=== PATIENT | male | born 1995 | race American Indian/Alaskan Native ===

== ENCOUNTER 2017-06-11 11:48 | Emergency (ER) | payer SELFPAY ==
[2017-06-11] MEDS ORDERED: TYLENOL ONE (11:57)
[2017-06-11] MEDS: TYLENOL PO ONE (12:01)
[2017-06-11 12:03] VITALS: BP 134/83
[2017-06-11] MEDS: MOTRIN PO ONE (14:52)
[2017-06-11 15:00] LABS: Bilirubin,Urine NEG (Negative); Blood,Urine NEG (Negative); Ketones,Urine NEG (Negative); Leukocyte Esterase,Urine NEG (Negative); Mucus,Urine FEW /HPF; Nitrite,Urine NEG (Negative); Urobilinogen,Urine < 2.0 mg/dL (<2.0)
[2017-06-11 15:10] LABS: Hematocrit 43.1 % (35.5-45.6); Hemoglobin 14.3 gm/dl (11.8-15.2); Mean Corpuscular HGB Conc 33 % (32-34); Mean Corpuscular Hemoglobin 28 pg (28-32); Mean Corpuscular Volume 85 fl (84-94); Platelet Count 171 K/mm3 (140-440); Red Blood Count 5.09 M/mm3 (3.65-5.03); Red Cell Distribution Width 13.5 % (13.2-15.2); White Blood Count 14.8 K/mm3 (4.5-11.0)
--- NOTE | 2017-06-11 15:35 | Emergency Department Report ---
- General Chief Complaint: Upper Respiratory Infection Stated Complaint: FLU LIKE SYMPTOMS,FEVER Time Seen by Provider: 06/11/17 14:31 Source: patient Mode of arrival: Ambulatory Limitations: No Limitations - History of Present Illness Initial Comments: This is a 22-year-old male nontoxic, well nourished in appearance, no acute signs of distress presents to the ED complaining of productive yellow cough, sore throat, rhinorrhea, fever and chills times one week. Patient stated when he has a cough episode he has back pain but denies back pain currently. Patient denies hemoptysis, nausea, vomiting, headache, stiff neck, chest pain, short of breath, difficulty breathing, wheezing, abdominal pain. Patient denies any allergies or past medical history. Denies calf pain or tenderness. Denies recent travels, long car rides or recent hospital stays. MD Complaint: fever, cough, sore throat, rhinorrhea, nasal congestion -: week(s) (1) Severity: mild Severity scale (0 -10): 6 Quality: aching Consistency: constant Improves With: nothing Worsens With: nothing Associated Symptoms: fever, chills, rhinorrhea, nasal congestion, sore throat, cough. denies: myalgias, diaphoresis, headache, stiff neck, chest pain, shortness of breath, abdominal pain, nausea, vomiting, diarrhea, dysuria, rash, right sweats, weight loss, epistaxis, hoarseness, ear pain Treatments Prior to Arrival: none - Related Data Previous Rx's Medication Instructions Recorded Last Taken Type Azithromycin [Zithromax Z-ANNETTE] 250 mg PO DAILY #6 tablet 06/11/17 Unknown Rx Benzonatate [Tessalon Perle] 100 mg PO DAILY #15 capsule 06/11/17 Unknown Rx Ibuprofen [Motrin 600 MG tab] 600 mg PO Q8H PRN #30 tablet 06/11/17 Unknown Rx Allergies Allergy/AdvReac Type Severity Reaction Status Date / Time No Known Allergies Allergy Verified 06/11/17 11:53 ED Review of Systems ROS: Stated complaint: FLU LIKE SYMPTOMS,FEVER Other details as noted in HPI Constitutional: chills, fever Eyes: denies: eye pain, eye discharge, vision change ENT: throat pain. denies: ear pain Respiratory: cough. denies: shortness of breath, wheezing Cardiovascular: denies: chest pain, palpitations Endocrine: no symptoms reported Gastrointestinal: denies: abdominal pain, nausea, diarrhea Genitourinary: denies: urgency, dysuria Musculoskeletal: denies: back pain, joint swelling, arthralgia Skin: denies: rash, lesions Neurological: denies: headache, weakness, paresthesias Psychiatric: denies: anxiety, depression Hematological/Lymphatic: denies: easy bleeding, easy bruising ED Past Medical Hx - Past Medical History Previous Medical History?: No - Surgical History Past Surgical History?: No - Social History Smoking Status: Never Smoker Substance Use Type: None - Medications Home Medications: Home Medications Medication Instructions Recorded Confirmed Last Taken Type Azithromycin [Zithromax Z-ANNETTE] 250 mg PO DAILY #6 tablet 06/11/17 Unknown Rx Benzonatate [Tessalon Perle] 100 mg PO DAILY #15 capsule 06/11/17 Unknown Rx Ibuprofen [Motrin 600 MG tab] 600 mg PO Q8H PRN #30 tablet 06/11/17 Unknown Rx ED Physical Exam - General Limitations: No Limitations General appearance: alert, in no apparent distress - Head Head exam: Present: atraumatic, normocephalic, normal inspection - Eye Eye exam: Present: normal appearance, PERRL, EOMI. Absent: scleral icterus, conjunctival injection, nystagmus, periorbital swelling, periorbital tenderness Pupils: Present: normal accommodation - ENT ENT exam: Present: mucous membranes moist, TM's normal bilaterally, normal external ear exam - Expanded ENT Exam Expanded Ear exam: Present: normal external inspection Mouth exam: Present: normal external inspection, tongue normal. Absent: drooling, trismus, muffled voice, tongue elevation, laceration Teeth exam: Present: normal inspection Throat exam: Positive: tonsillar erythema, tonsillomegaly (2+), tonsillar exudate, other (Uvula midline. No abscess or swelling noted. ). Negative: R peritonsillar mass, L peritonsillar mass - Neck Neck exam: Present: normal inspection, full ROM. Absent: tenderness, meningismus, lymphadenopathy, thyromegaly - Respiratory Respiratory exam: Present: normal lung sounds bilaterally. Absent: respiratory distress, wheezes, rales, rhonchi, stridor, chest wall tenderness, accessory muscle use, decreased breath sounds, prolonged expiratory - Cardiovascular Cardiovascular Exam: Present: regular rate, normal rhythm, tachycardia, normal heart sounds. Absent: bradycardia, irregular rhythm, systolic murmur, diastolic murmur, rubs, gallop - GI/Abdominal GI/Abdominal exam: Present: soft, normal bowel sounds. Absent: distended, tenderness, guarding, rebound, rigid, diminished bowel sounds - Rectal Rectal exam: Present: deferred - Extremities Exam Extremities exam: Present: normal inspection, full ROM, normal capillary refill. Absent: tenderness, pedal edema, joint swelling, calf tenderness - Back Exam Back exam: Present: normal inspection, full ROM. Absent: tenderness, CVA tenderness (R), CVA tenderness (L), muscle spasm, paraspinal tenderness, vertebral tenderness, rash noted - Neurological Exam Neurological exam: Present: alert, oriented X3, CN II-XII intact, normal gait, reflexes normal - Psychiatric Psychiatric exam: Present: normal affect, normal mood - Skin Skin exam: Present: warm, dry, intact, normal color. Absent: rash ED Course Vital Signs 06/11/17 06/11/17 06/11/17 11:53 15:32 16:52 Temperature 102.2 F H 99.7 F H 98.7 F Pulse Rate 123 H 98 H 89 Respiratory 16 20 20 Rate Blood Pressure 134/83 O2 Sat by Pulse 100 100 100 Oximetry - Reevaluation(s) Reevaluation #1: 06/11/17 15:38 Patient is speaking in full sentences with no signs of distress noted. Reevaluation #2: 06/11/17 15:38 Patient is currently tachycardic and ordered 1 L of normal saline and we'll reassess temperature and heart rate. ED Medical Decision Making - Lab Data Result diagrams: 06/11/17 15:00 06/11/17 15:00 - Medical Decision Making 22-year-old male that presents with upper restarted infection and tonsillitis with exudate. Patient was examined by me and patient is stable. Patient received acetaminophen and ibuprofen for fever which reduced it to normal and patient received 1 L of normal saline which heart rate has decreased. Patient be treated with azithromycin 6 days. X-ray has been obtained and reviewed by radiologist with negative findings of any abnormalities in the chest. CBC, BMP , UA has been also obtained with elevated white blood cell count in cbc. Patient was instructed to follow-up with a primary care doctor in 3-5 days or if symptoms worsen and continue return to emergency room as soon as possible possible. Patient is hemodynamically stable with stable vital signs. Patient states he is feeling better. At time time of discharge, the patient does not seem toxic or ill in appearance. No acute signs of distress noted. Patient agrees to discharge treatment plan of care. No further questions noted by the patient. Critical care attestation.: If time is entered above; I have spent that time in minutes in the direct care of this critically ill patient, excluding procedure time. ED Disposition Clinical Impression: Tonsillitis with exudate Upper respiratory infection Qualifiers: URI type: unspecified URI Qualified Code(s): J06.9 - Acute upper respiratory infection, unspecified Disposition: - TO HOME OR SELFCARE Is pt being admited?: No Does the pt Need Aspirin: No Condition: Stable Instructions: Ibuprofen (By mouth), Azithromycin (By mouth), Upper Respiratory Infection (ED), Tonsillitis (ED) Additional Instructions: Follow-up with a primary care doctor in 3-5 days or if symptoms worsen and continue return to emergency room as soon as possible possible. Take ibuprofen as prescribed during fever episode area Prescriptions: Azithromycin [Zithromax Z-ANNETTE] 250 mg PO DAILY #6 tablet Benzonatate [Tessalon Perle] 100 mg PO DAILY #15 capsule Ibuprofen [Motrin 600 MG tab] 600 mg PO Q8H PRN #30 tablet PRN Reason: Pain Referrals: PRIMARY CARE, [Primary Care Provider] - 3-5 Days BARBARA ORTIZ MD [Staff Physician] - 3-5 Days [facility] [Outside] - 3-5 Days [facility] [Outside] - 3-5 Days Forms: Work/School Release Form(ED)
[2017-06-11 15:38] LABS: Anion Gap 15 mmol/L; BUN/Creatinine Ratio 10; Blood Urea Nitrogen 10 mg/dL (9-20); Calcium 9.3 mg/dL (8.4-10.2); Carbon Dioxide 30 mmol/L (22-30); Chloride 101.8 mmol/L (98-107); Glucose 100 mg/dL (75-100); Potassium 4.2 mmol/L (3.6-5.0); Sodium 143 mmol/L (137-145)
--- NOTE | 2017-06-11 15:38 | XRay Report ---
Chest 2 views: History: Cough. Findings: Normal cardiomediastinal silhouette. Trachea is midline. No consolidation, pneumothorax or pleural effusion. Impression: No acute cardiopulmonary findings.
[2017-06-11] MEDS: NACL 0.9% 1000 ML 1,000 ML IV ONE (16:18)
[2017-06-11] MEDS: TESSALON PERLES PO ONE (17:10)
[2017-06-11 18:33] LABS: Basophils % (Manual) 0 % (0.0-1.8); Blastocytes % (Manual) 0 %; Eosinophils % (Manual) 0 % (0.0-4.3)
[2017-06-11 18:34] LABS: Diff Status Complete; Platelet Estimate Consistent w Auto; RBC Morphology Normal
== END 2017-06-11 17:20 | disposition home or self-care (01) ==
LOC: ED 11:48
DX: J03.90 Acute tonsillitis, unspecified (principal); J06.9 Acute upper respiratory infection, unspecified
CPT/HCPCS: 36415; 71020; 80048; 81001; 85007; 85025; 87400; 96360; 99284; J7030

== ENCOUNTER 2019-12-07 21:29 | Emergency (ER) | payer BC ==
[2019-12-07 21:54] VITALS: BP 150/98
--- NOTE | 2019-12-07 22:01 | Emergency Department Report ---
Chief Complaint: Urogenital-Male Stated Complaint: DISCHARGE/BURNING/BLOOD IN URINE Time Seen by Provider: 12/07/19 21:51 - HPI History of Present Illness: Patient is a 24-year-old male presents emergency room with complaints of dysuria that began 2 days ago. He has associated yellow penile discharge. He states that he began taking Azo and that his urine has been a red/orange color. He denies any fever, nausea, vomiting, diarrhea, abdominal pain, pain or swelling of the testicles, any other symptoms. He denies any past medical history or allergies to medications. Vitals are stable On exam: Non toxic appearing, no acute distress atraumatic, normocephalic normal appearance of the eyes, EOMI, no periorbital edema or ecchymosis moist mucus membranes regular heart rate and rhythm, no gallops, no rubs, no murmurs breath sounds are clear bilaterally, no w/r/r A&O x4, no focal neuro deficit skin is warm, dry, intact Patient is presenting with clinical symptoms of an STD He denies any abdominal pain, fever, pain or swelling in the testicles Patient will be referred to the appropriate resources to receive a full STD panel and treatment Medical screening examination performed and there is no threat to life or limb at this time Discussed strict return precautions with patient in detail - Exam Vital Signs: Vital Signs 12/07/19 21:33 Temperature 98.6 F Pulse Rate 78 Respiratory 18 Rate Blood Pressure 150/98 O2 Sat by Pulse 99 Oximetry MSE screening note: Focused history and physical exam performed. ED Disposition for MSE Clinical Impression: Dysuria, Penile discharge, Concern about STD in male without diagnosis Disposition: Z-07 MED SCREENING EXAM-LEFT Is pt being admited?: No Does the pt Need Aspirin: No Condition: Stable Instructions: Sexually Transmitted Diseases (ED), Safe Sex (ED) Additional Instructions: Please follow-up with the health department or another clinic for full STD panel and treatment. Please have your partner tested and treated as well. Please avoid sexual intercourse until you have been tested and treated. Return to emergency room for any new or worsening symptoms. [employer] Address: [address] [place] [id number] Referrals: [facility] [Outside] - 3-5 Days [facility] [Provider Group] - 3-5 Days [facility] [Outside] - 3-5 Days [facility] [Outside] - 3-5 Days Time of Disposition: 21:59 Print Language: JAPANESE
== END 2019-12-07 22:07 | disposition left against medical advice (07) ==
LOC: ED 21:29
DX: R30.0 Dysuria (principal); R36.9 Urethral discharge, unspecified; Z20.2 Contact with and (suspected) exposure to infections with a predominantly sexual mode of transmission
CPT/HCPCS: 99281